=== PATIENT | female | born 1965 | race Caucasian/White ===

== ENCOUNTER 2017-03-05 20:40 | Observation (INO) | payer OTHER ==
[~2017-03-05] VITALS: Ht 167.6 cm; Wt 62.9 kg
--- NOTE | ~2017-03-05 | HP ---
PATIENT'S NAME: NABEEL MENESES [facility] AGE: 51 Y [address] ROOM: [address] [address] LOCATION: [facility] [place] ADMIT DATE: 03/05/2017 History & Physical DISCHARGE DATE: FAMILY PHYSICIAN: PHYSICIAN, UNKNOWN ATTENDING PHYSICIAN: Jerardo DAY DATE OF SERVICE: CHIEF COMPLAINT: Abdominal pain. HISTORY OF PRESENT ILLNESS: The patient is a 51-year-old female, who was woken this morning sharply at 3:00 a.m. with lower abdominal pain that was severe in nature, associated with anorexia and subjective fevers. She was driven by her to the local hospital in [place], [place], for evaluation. There, she was noted to have significant pain in the suprapubic and right lower quadrant region. She had a white count of 10.8, and otherwise unremarkable labs. She had a CT scan suggestive of acute appendicitis. She was transferred to [facility] for further evaluation and intervention. PAST MEDICAL HISTORY: Includes asthma and endometriosis. PAST SURGICAL HISTORY: Includes a total hysterectomy and 2 prior C-sections. MEDICATIONS: 1. Advair. 2. Meloxicam. ALLERGIES: ARE TO SULFA AND CODEINE. SOCIAL HISTORY: The patient is . She is a nonsmoker. She uses alcohol occasionally. FAMILY MEDICAL HISTORY: Significant for Alzheimer's and cardiovascular disease in her mother. PHYSICAL EXAMINATION: VITAL SIGNS: The patient is afebrile. She has a heart rate in the 90s. She is normotensive. GENERAL: She is doubled over in pain. She is in moderate distress. She is somewhat consolable. PATIENT'S NAME: NABEEL MENESES [facility] AGE: 51 Y [address] ROOM: [id number] [place], [place] [address] LOCATION: [facility] [place] ADMIT DATE: 03/05/2017 History & Physical DISCHARGE DATE: FAMILY PHYSICIAN: PHYSICIAN, UNKNOWN ATTENDING PHYSICIAN: Jerardo DAY HEENT: Her sclerae are anicteric. Her mucous membranes are dry. NECK: Supple. LUNGS: Clear. CHEST: Normal. HEART: Normal. ABDOMEN: Her abdomen is scaphoid with positive bowel sounds. She has well- healed surgical scars consistent with history. She has exquisite tenderness in the right lower quadrant with a positive pelvic shake and heel tap and a positive Rovsing sign. EXTREMITIES: Her extremity exam is normal. IMAGING DATA: CT scan was reviewed with findings consistent with acute appendicitis. IMPRESSION: Acute appendicitis. PLAN: Laparoscopic appendectomy. The risks, benefits, indications, and alternatives of this procedure were discussed with the patient. The patient is eager to proceed. The patient will be admitted postoperatively overnight given that she is 3.5 hours away by car. JERARDO DAY MD CM/jo /[id number] D: [id number] T: [id number] HISTORY & PHYSICAL
--- NOTE | ~2017-03-05 | OR ---
PATIENT'S NAME: NABEEL MENESES [facility] AGE: 51 Y [address] ROOM: [address] [address] LOCATION: [facility] ADMIT DATE: 03/05/2017 OR/Procedure Report DISCHARGE DATE: FAMILY PHYSICIAN: PHYSICIAN, UNKNOWN ATTENDING PHYSICIAN: Jerardo MONTGOMERY SURGEON: Jerardo Montgomery MD NITROGEN OPERATOR: DATE OF PROCEDURE: 03/05/2016 PREOPERATIVE DIAGNOSIS: Acute appendicitis. POSTOPERATIVE DIAGNOSIS: Acute appendicitis. ANESTHESIA: General endotracheal anesthesia. COUNTS: Sponge and needle count at the end of the case was correct. COMPLICATIONS: None. PROCEDURE: Laparoscopic appendectomy. DESCRIPTION OF PROCEDURE: After informed consent was obtained, the patient was taken to the operating room and intubated. A Oneill catheter was placed. The patient's anterior abdominal wall was sterilely prepped and draped. A Veress needle technique was used through a stab incision in the infraumbilical midline to create a pneumoperitoneum. A 5-mm camera was passed through a 5-mm port. No injury to subjacent bowel was identified. A 12-mm left lower quadrant port was placed under camera visualization. Extensive adhesions to her Pfannenstiel incision were noted, which prevented subsequent port placement. Blunt and Harmonic dissection of these omental adhesions to the anterior abdominal wall was used to allow room for trocar placement. A 5-mm suprapubic trocar was placed. Once the adhesions were partially taken down, the patient was placed in a Trendelenburg position and rotated to the left side. Inspection of the right lower quadrant revealed an acutely inflamed appendix without evidence of perforation. There was no free fluid. The mesoappendix was divided with a Harmonic scalpel. The base of the appendix appeared involved with the acute inflammatory process, and I felt this base of the appendix was not suitable for suture ligation. An [place] Flex Stapler with a blue load was used to divide across the base of the cecum. The specimen was extracted with an EndoCatch bag through the left lower quadrant port site. Inspection of the right lower quadrant revealed no evidence of leak to the cecum, no evidence of bleeding, and no compromise of the ileocecal junction from the staple line. The ports were removed under camera visualization. The fascia of the 11-mm port was closed with 0 Vicryl. Monocryl and Dermabond were used for all port incisions. The patient was PATIENT'S NAME: NABEEL MENESES [facility] AGE: 51 Y [address] ROOM: [address] [address] LOCATION: [facility] ADMIT DATE: 03/05/2017 OR/Procedure Report DISCHARGE DATE: FAMILY PHYSICIAN: PHYSICIAN, UNKNOWN ATTENDING PHYSICIAN: Jerardo MONTGOMERY extubated in the operating room. Oneill catheter was removed. The patient was taken to the post anesthesia care unit in stable condition. JERARDO MONTGOMERY MD CM/jo /[id number] d: 03/06/17 0140 t: 04/03/17 1441, OPERATIVE SUMMARY
[2017-03-06] MEDS ORDERED: ADVAIR 500-501 EACH INH (01:18)
--- NOTE | 2017-03-06 02:04 | NUR ---
Significant Event: 51 YEAR OLD FEMALE ADMITTED FROM PACU AFTER LAP APPY. HAS 3 STAB SITES WITH GLUE. SALINE LOCKED POST OP VITALS IN PROGRESS. HISTORY OF ASTHMA. ALERT AND ORIENATED. Follow up: CONTINUE TO MONITOR.
[2017-03-06] MEDS ORDERED: PERCOCET 5-3251 EACH PO (09:49)
[2017-03-06] MEDS ORDERED: ZOFRAN4 MG PO (09:50)
--- NOTE | 2017-03-06 10:25 | NUR ---
Introduced self/role to patient and her . She is getting ready for discharge. They denied any barriers at home. Got her family doctor LLOYD Deal. stated they gave that information at admission too.
--- NOTE | 2017-03-06 12:02 | NUR ---
DISCHARGE: Pt. was educated on lap appy, incision care, and new medications: zofran and percocet. Reviewed discharge instructions. Verbalized understanding of d/c instructions, no questions or concerns. IV removed by primary nurse. Left with all belongings and prescriptions. Taken to front door by aide and driven home by family.
== END 2017-03-06 10:25 | disposition disaster alternative care site (69) ==
LOC: G2N 20:40 → GMSU 22:21
PROVIDERS: ADMIT Surgery
PROC: 0DTJ4ZZ Resection of Appendix, Percutaneous Endoscopic Approach (ICD-10-PCS; principal; 2017-03-05)
DX: K35.80 Unspecified acute appendicitis (principal); J45.909 Unspecified asthma, uncomplicated; Z88.2 Allergy status to sulfonamides; Z88.5 Allergy status to narcotic agent; Z90.710 Acquired absence of both cervix and uterus
CPT/HCPCS: J1650; J2405; J2543; J7030